=== PATIENT | male | born 1990 | race African-American/Black ===

== ENCOUNTER 2017-01-18 21:44 | Emergency (ER) | payer OTHER ==
[2017-01-18 22:09] VITALS: BP 129/72; PULSE 79; RESP 20; TEMP 98.9
--- NOTE | 2017-01-18 23:00 | XR ---
EXAM: XR Chest, 2 Views. CLINICAL HISTORY: Reason: Pain TECHNIQUE: Frontal and lateral views of the chest. COMPARISON: 05/20/14 FINDINGS: Lungs: Unremarkable. No consolidation. Pleural space: Unremarkable. No pneumothorax. Heart: Unremarkable. No cardiomegaly. Mediastinum: Unremarkable. Bones/joints: Unremarkable. IMPRESSION: No significant change. No acute intrathoracic abnormality is seen.
--- NOTE | 2017-01-18 23:05 | ED ---
General Adult HPI - General Chief complaint: Neck Pain/Injury Stated complaint: Lumps on neck Time Seen by Provider: 01/18/17 22:10 Source: patient, RN notes reviewed, old records reviewed Mode of arrival: ambulatory Limitations: no limitations - History of Present Illness Initial comments: Patient is a 26-year-old male with chief complaint of swelling over the right side of his neck for 2 weeks. Patient reports that he saw a physician at [facility] last week. He was told that if it did not go away after his illness subsided reevaluated. Patient reports that he did not receive any antibiotics or other treatment from the initial provider. Patient will need continued to have a cough over the past few weeks. He states that he productive and has some green sputum. Patient states that he's had chills but no significant fever. Patient states that he has had no sinus congestion, shortness of breath or abdominal pain. Patient states that he's had no Motrin or Tylenol for his pain. - Related Data Previous Rx's Medication Instructions Recorded Albuterol Inhaler [Ventolin Hfa 1 - 2 puff INHALATION Q6HR PRN #1 01/18/17 Inhaler] inhaler Azithromycin [Zithromax Z-pack] 250 mg PO DIRECTED #6 tab 01/18/17 methylPREDNISolone Dose Pack 4 mg PO DIRECTED #21 package 01/18/17 [Medrol Dose Pack] Allergies Allergy/AdvReac Type Severity Reaction Status Date / Time shellfish derived Allergy Anaphylaxis Verified 01/18/17 22:09 Review of Systems ROS Statement: Those systems with pertinent positive or pertinent negative responses have been documented in the HPI. ROS Other: All systems not noted in ROS Statement are negative. Past Medical History Past Medical History: No Reported History History of Any Multi-Drug Resistant Organisms: None Reported Past Surgical History: No Surgical Hx Reported Past Psychological History: No Psychological Hx Reported Smoking Status: Former smoker Past Alcohol Use History: None Reported Past Drug Use History: None Reported General Exam - General Exam Comments Initial Comments: Well-appearing 26 showed male. No acute distress. Limitations: no limitations Head exam: Present: atraumatic, normocephalic, normal inspection Eye exam: Present: normal appearance, PERRL, EOMI. Absent: scleral icterus, conjunctival injection, periorbital swelling ENT exam: Present: normal exam, mucous membranes moist Neck exam: Present: normal inspection. Absent: tenderness, meningismus, lymphadenopathy Respiratory exam: Present: normal lung sounds bilaterally. Absent: respiratory distress, wheezes, rales, rhonchi, stridor Cardiovascular Exam: Present: regular rate, normal rhythm, normal heart sounds. Absent: systolic murmur, diastolic murmur, rubs, gallop, clicks GI/Abdominal exam: Present: soft, normal bowel sounds. Absent: distended, tenderness, guarding, rebound, rigid Extremities exam: Present: normal inspection, full ROM, normal capillary refill. Absent: tenderness, pedal edema, joint swelling, calf tenderness Back exam: Present: normal inspection Neurological exam: Present: alert, oriented X3, CN II-XII intact Psychiatric exam: Present: normal affect, normal mood Skin exam: Present: warm, dry, intact, normal color. Absent: rash Course Vital Signs 01/18/17 22:07 Temperature 98.9 F Pulse Rate 79 Respiratory 20 Rate Blood Pressure 129/72 O2 Sat by Pulse 98 Oximetry Medical Decision Making - Medical Decision Making Patient is a 26-year-old male with chief complaint of swelling over the right side of his neck for 2 weeks. Patient reports that he saw a physician at [facility] last week. He was told that if it did not go away after his illness subsided reevaluated. Patient reports that he did not receive any antibiotics or other treatment from the initial provider. Patient will need continued to have a cough over the past few weeks. He states that he productive and has some green sputum. Patient states that he's had chills but no significant fever. Patient is given a chest x-ray due to his productive cough. Chest x-ray is negative for any acute process. Since the cough has lasted over 2 weeks O2 the patient with azithromycin. Patient also given a prescription for Medrol Dosepak and an albuterol inhaler. Patient agrees with the treatment plan I did discuss that he is to follow-up with his primary care provider if the swollen lymph nodes continue after one month. I discussed that this is a normal variant with any viral or bacterial illness and to take some time to heal and the swelling to go down. Patient agrees to treatment plan will comply. Return parameters were discussed. - Radiology Data Radiology results: report reviewed Chest x-ray shows no acute process. No nits of pneumonia or pleural effusion. Disposition Clinical Impression: Cough, Anterior cervical lymphadenopathy Disposition: HOME SELF-CARE Condition: Good Instructions: Lymphadenopathy (ED), Acute Bronchitis (ED) Additional Instructions: Follow-up with primary care provider after completing antibiotics and swelling is still there after one month. Return to the emergency department if any alarming signs or symptoms occur. Prescriptions: Albuterol Inhaler [Ventolin Hfa Inhaler] 1 - 2 puff INHALATION Q6HR PRN #1 inhaler PRN Reason: Shortness Of Breath Azithromycin [Zithromax Z-pack] 250 mg PO DIRECTED #6 tab methylPREDNISolone Dose Pack [Medrol Dose Pack] 4 mg PO DIRECTED #21 package Referrals: Abhijeet Rodgers MD [Primary Care Provider] - 1-2 days Time of Disposition: 23:03
== END 2017-01-18 23:18 | disposition home or self-care (01) ==
LOC: EC 21:44
DX: R59.0 Localized enlarged lymph nodes (principal); Z87.891 Personal history of nicotine dependence; Z91.013 Allergy to seafood
CPT/HCPCS: 71020; 99283

== ENCOUNTER 2017-04-09 05:55 | Emergency (ER) | payer OTHER ==
[2017-04-09 06:02] VITALS: BP 124/71; PULSE 61; RESP 18; TEMP 97
== END 2017-04-09 06:54 ==
LOC: EC 05:55
DX: Z02.89 Encounter for other administrative examinations (principal)

== ENCOUNTER 2021-05-27 15:54 | Emergency (ER) | payer OTHER ==
[2021-05-27] MEDS ORDERED: LIDOCAINE 5% PATCH TOPICAL STA (16:14)
[2021-05-27] MEDS ORDERED: SODIUM CHLORIDE 0.9% 1,000 ML IV STA (16:14)
[2021-05-27] MEDS ORDERED: ONDANSETRON 4 MG/2 ML VIAL IVP STA (16:14)
[2021-05-27 16:15] VITALS: RESP 18
--- NOTE | 2021-05-27 16:19 | ED ---
General Adult HPI - General Chief complaint: Dizziness Stated complaint: Dizziness Time Seen by Provider: 05/27/21 16:04 Source: patient Mode of arrival: wheelchair Limitations: no limitations - History of Present Illness Initial comments: Dictation was produced using [employer] dictation software. please excuse any grammatical, word or spelling errors. Chief Complaint: 30-year-old male presents to the emergency department for neck pain and dizziness History of Present Illness: 30-year-old male has no significant past medical history presents with couple hours of neck pain and dizziness. He is at home stretching. He stretched and all of a sudden started having left-sided neck pain. Patient also states that he is dizzy. Denies sensation of the room spinning. Patient smokes marijuana regularly. He has no other pain complaints. Denies any numbness or paresthesias to the arms or legs. The ROS documented in this emergency department record has been reviewed and confirmed by me. Those systems with pertinent positive or negative responses have been documented in the HPI. All other systems are other negative and/or noncontributory. PHYSICAL EXAM: General Impression: Alert and oriented x3, not in acute distress HEENT: Normocephalic atraumatic, extra-ocular movements intact, pupils equal and reactive to light bilaterally, dry mucous membranes, no carotid bruits Neck: Tenderness to palpation over the soft tissues of the left lateral neck over the trapezius Cardiovascular: Heart regular rate and rhythm Chest: Able to complete full sentences, no retractions, no tachypnea Abdomen: abdomen soft, non-tender, non-distended, no organomegaly Musculoskeletal: Pulses present and equal in all extremities, no peripheral edema Motor: no focal deficits noted Neurological: CN II-XII grossly intact, no focal motor or sensory deficits noted Skin: Intact with no visualized rashes Psych: Normal affect and mood ED course: 30 y Old male presents emergency department for neck pain and dizziness. clinical presentation consistent with neck strain. Vital signs upon arrival shows heart rate of 121, worse vital signs within acceptable limits. Repeat vital signs at bedside are unremarkable. EKGs benign. His heart rate at the bedside is 68. Patient given Toradol, Lidoderm patch Zofran and fluids. Patient related bed side at 5:43 PM found to be stable medical condition. Patient states his symptoms are almost gone. Patient is well-appearing at bedside. Patient be discharge. Advised to follow-up with primary care doctor. Return precautions discussed. Patient given a PCP referral. EKG interpretation: Ventricular rate 60, normal sinus rhythm,. Interval 90, Q's 100, QTC 427. No FL prolongation, no QTC prolongation, no ST or T-wave changes noted. Overall, this EKG is unremarkable - Related Data Home Medications Medication Instructions Recorded Confirmed No Known Home Medications 04/09/17 04/09/17 Allergies Allergy/AdvReac Type Severity Reaction Status Date / Time shellfish derived Allergy Anaphylaxis Verified 05/27/21 16:03 Review of Systems ROS Statement: Those systems with pertinent positive or pertinent negative responses have been documented in the HPI. ROS Other: All systems not noted in ROS Statement are negative. Past Medical History Past Medical History: No Reported History History of Any Multi-Drug Resistant Organisms: None Reported Past Surgical History: No Surgical Hx Reported Past Psychological History: No Psychological Hx Reported Smoking Status: Never smoker Past Alcohol Use History: Rare Past Drug Use History: Marijuana General Exam Limitations: no limitations Course Vital Signs 05/27/21 05/27/21 16:01 16:14 Temperature 97.5 F L Pulse Rate 121 H 58 L Respiratory 16 18 Rate Blood Pressure 137/87 122/73 O2 Sat by Pulse 97 100 Oximetry Medical Decision Making - Lab Data Result diagrams: 05/27/21 16:20 05/27/21 16:20 Lab Results 05/27/21 05/27/21 Range/Units 16:20 16:20 WBC 5.9 (3.8-10.6) k/uL RBC 5.29 (4.30-5.90) m/uL Hgb 16.2 (13.0-17.5) gm/dL Hct 46.8 (39.0-53.0) % MCV 88.5 (80.0-100.0) fL MCH 30.7 (25.0-35.0) pg MCHC 34.7 (31.0-37.0) g/dL RDW 12.4 (11.5-15.5) % Plt Count 230 (150-450) k/uL MPV 9.9 Neutrophils % 49 % Lymphocytes % 29 % Monocytes % 10 % Eosinophils % 9 % Basophils % 1 % Neutrophils # 2.9 (1.3-7.7) k/uL Lymphocytes # 1.8 (1.0-4.8) k/uL Monocytes # 0.6 (0-1.0) k/uL Eosinophils # 0.5 (0-0.7) k/uL Basophils # 0.1 (0-0.2) k/uL Sodium 136 L (137-145) mmol/L Potassium 5.7 H (3.5-5.1) mmol/L Chloride 106 (98-107) mmol/L Carbon Dioxide 21 L (22-30) mmol/L Anion Gap 9 mmol/L BUN 12 (9-20) mg/dL Creatinine 0.76 (0.66-1.25) mg/dL Est GFR (CKD-EPI)AfAm >90 (>60 ml/min/1.73 sqM) Est GFR (CKD-EPI)NonAf >90 (>60 ml/min/1.73 sqM) Glucose 93 (74-99) mg/dL Calcium 9.9 (8.4-10.2) mg/dL Disposition Clinical Impression: Neck strain Disposition: HOME SELF-CARE Condition: Good Instructions (If sedation given, give patient instructions): Cervical Strain (DC) Is patient prescribed a controlled substance at d/c from ED?: No Referrals: Mary Pemberton MD [STAFF PHYSICIAN] - 1-2 days
[2021-05-27] MEDS ORDERED: KETOROLAC 15 MG/ML 1 ML VIAL IVP STA (16:25)
[2021-05-27 16:27] LABS: Basophils # (A) 0.1 k/uL (0-0.2); Basophils % (A) 1 %; Eosinophils # (A) 0.5 k/uL (0-0.7); Eosinophils % (A) 9 %; HCT 46.8 % (39.0-53.0); HGB 16.2 gm/dL (13.0-17.5); Lymphocytes # (A) 1.8 k/uL (1.0-4.8); Lymphocytes % (A) 29 %; MCH 30.7 pg (25.0-35.0); MCHC 34.7 g/dL (31.0-37.0); MCV 88.5 fL (80.0-100.0); Mean Platelet Volume 9.9; Monocytes # (A) 0.6 k/uL (0-1.0); Monocytes % (A) 10 %; Neutrophils # (A) 2.9 k/uL (1.3-7.7); Neutrophils % (A) 49 %; Platelet Count 230 k/uL (150-450); RBC 5.29 m/uL (4.30-5.90); RDW 12.4 % (11.5-15.5); WBC 5.9 k/uL (3.8-10.6)
[2021-05-27 16:40] LABS: African American GFR (CKD) >90 (>60 ml/min/1.73 sqM); Anion Gap 9 mmol/L; Blood Urea Nitrogen 12 mg/dL (9-20); Calcium 9.9 mg/dL (8.4-10.2); Carbon Dioxide 21 mmol/L (22-30); Chloride 106 mmol/L (98-107); Glucose 93 mg/dL (74-99); Non-African American GFR(CKD) >90 (>60 ml/min/1.73 sqM); Sodium 136 mmol/L (137-145)
[2021-05-27 16:44] LABS: Potassium 5.7 mmol/L (3.5-5.1)
[2021-05-27 17:56] VITALS: BP 126/69; PULSE 57; TEMP 97.8
== END 2021-05-27 18:01 | disposition home or self-care (01) ==
LOC: EC 15:54
DX: S16.1XXA Strain of muscle, fascia and tendon at neck level, initial encounter (principal); F12.90 Cannabis use, unspecified, uncomplicated; X50.1XXA Overexertion from prolonged static or awkward postures, initial encounter; Y92.009 Unspecified place in unspecified non-institutional (private) residence as the place of occurrence of the external cause
CPT/HCPCS: 36415; 80048; 85025; 96374; 96375; 96361; 99284; J2405; J1885

== ENCOUNTER 2021-08-19 23:14 | Emergency (ER) | payer OTHER ==
[2021-08-19 23:24] VITALS: RESP 18; TEMP 98
[2021-08-19] MEDS ORDERED: LIDOCAINE 1% INJ 10MG/ML (20 ML MDV) SQ ONE (23:26)
[2021-08-19] MEDS ORDERED: KETOROLAC 15 MG/ML 1 ML VIAL IM STA (23:48)
--- NOTE | 2021-08-19 23:55 | XR ---
EXAMINATION TYPE: XR hand complete RT DATE OF EXAM: 08/19/2021 COMPARISON: NONE HISTORY: Laceration. Edema. TECHNIQUE: 3 views FINDINGS: There is some soft tissue swelling on the dorsum of the hand. Metacarpals are intact. Finge rs appear intact. I see no fracture nor dislocation. IMPRESSION: Soft tissue swelling. No fracture seen.
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
[2021-08-20 00:29] VITALS: BP 133/78; PULSE 78
== END 2021-08-20 00:29 | disposition home or self-care (01) ==
LOC: EC 23:14
DX: S61.411A Laceration without foreign body of right hand, initial encounter (principal); F12.90 Cannabis use, unspecified, uncomplicated; Y04.8XXA Assault by other bodily force, initial encounter
CPT/HCPCS: 73130; 12002; 96372; 99283; J2001; J1885